=== PATIENT | female | born 2000 | race Caucasian/White ===

== ENCOUNTER 2024-08-01 02:55 | Emergency (ER) | payer BC ==
[~2024-08-01] VITALS: Ht 162.6 cm; Wt 88.5 kg
--- NOTE | 2024-08-01 03:31 | ERN ---
General Chief Complaint: Headache Stated Complaint: possible concussion Time Seen by MD: 03:01 Source: patient History of Present Illness Initial Comments Patient was in the kitchen pending over or leaning over to get something and then she banged her head on the counter. She had a brief period of nausea but no emesis. No loss of consciousness. Currently she has a headache. She has no past medical history. Allergies: Coded Allergies: No Known Drug Allergies (Unverified Allergy, Unknown, 08/01/24) Past Medical History Past Medical History: No Pertinent History Past Surgical History: None Constitutional: (-) chills, (-) diaphoresis, (-) fever, (-) malaise, (-) weakness, (-) other documentation EENTM: (-) eye pain, (-) blurred vision, (-) tearing, (-) double vision, (-) ear pain, (-) ear discharge, (-) nose pain, (-) nose congestion, (-) throat pain, (-) Throat swelling, (-) mouth pain, (-) tooth pain, (-) mouth swelling, (-) other documentation Respiratory: (-) cough, (-) orthopnea, (-) short of breath, (-) stridor, (-) wheezing, (-) other documentation Cardiovascular: (-) chest pain, (-) edema, (-) palpitations, (-) syncope, (-) dyspnea on exertion, (-) other documentation Gastrointestinal/Abdominal: (+) nausea Musculoskeletal: (-) Neck pain, (-) back pain, (-) Flank Pain, (-) joint pain, (-) joint swelling, (-) muscle pain, (-) muscle stiffness, (-) gout, (-) other documentation Skin: (-) laceration, (-) contusion, (-) abrasion, (-) abscess, (-) rash, (-) change in color, (-) change in hair, (-) change in nails, (-) diaphoresis, (-) dryness, (-) other documentation Neuro: (+) headache Physical Exam General Appearance: (+) no apparent distress Orientation: (+) alert Head/Face Trauma: No Face Comment No obvious contusion on the patient's posterior scalp. No tenderness no bleeding Eye: bilateral eye normal inspection, bilateral eye PERRL, bilateral eye EOMI Ear, Nose, Throat: (+) hearing grossly normal, (+) normal ENT inspection, (+) moist mucous membraine Neck: (-) normal inspection, (-) supple, (-) full range of motion, (-) no JVD, (-) non-tender, (-) no bruit, (-) tender, (-) limited range of motion, (-) tender lateral, (-) tender midline, (-) thyromegaly, (-) lymphadenopathy, (-) masses, (-) carotid bruit, (-) other documentaion Respiratory: (+) chest non-tender, (+) lungs clear Heart: (+) regular Results Laboratory and Microbiology Lab and Micro Result Laboratory Tests Test 08/01/24 04:14 Urine HCG, Qualitative NEGATIVE (NEGATIVE) MDM I have low suspicion for a a cerebral hemorrhage. Patient does have mild symptoms of a concussion and I will get a head CT scan. Patient head CT scan is negative for hemorrhage fracture hydrocephalus. I will discharge the patient. With instructions to return if her postconcussive symptoms get worse. ED Course Orders Procedure Category Date Status Time Ct Head/Brain W/O CT 08/01/24 Taken Contrast 03:01 Ketorolac 60mg/2ml PHA 08/01/24 Complete (Toradol 60mg/2ml) 04:00 ,Urine Test LAB 08/01/24 Complete 04:18 Current Medications Medications (Trade) Dose Ordered Sig/Ulisses Route PRN Reason Start Time Stop Time Status Last Admin Dose Admin Ketorolac Tromethamine (toRADol 60MG/ 2ML) 60 mg ONCE ONCE IM 08/01/24 04:00 08/01/24 04:02 DC 08/01/24 04:10 Vital Signs Date Time Temp Pulse Resp B/P (MAP) Pulse Ox O2 Delivery O2 Flow Rate FiO2 08/01/24 03:23 98.6 90 18 136/88 99 Room Air* 0 21 08/01/24 03:19 92 18 124/67 99 Room Air 08/01/24 03:19 97.0 92 18 124/76 98 Room Air* 0 21 DX & DISP Disposition: Discharge Departure Impression: Primary Impression: Post-concussion headache Condition: Stable Additional Instructions: You may have a postconcussive syndrome. Or a postconcussive headache. You can control the symptoms with [id number] medications such as Tylenol or ibuprofen. If the nausea and vomiting prevent you from eating well or staying hydrated please return to the emergency room. Referrals: NONE (PCP) LAURA VALENCIA MD Aug 01, 2024 03:31
[2024-08-01] MEDS: ketOROlac 60 MG VIAL (30MG/ML) IM ONE (04:10)
[2024-08-01 05:07] VITALS: BP 145/83; PULSE 90; RESP 17; TEMP 98.6; O2SAT 100
--- NOTE | 2024-08-01 08:20 | HMCIMG ---
CT HEAD/BRAIN W/O CONTRAST HISTORY: Concussion COMPARISON: None TECHNIQUE: Multiple sequential axial images of the head were obtained from the base of the skull through vertex. Patient was not given contrast through intravenous route. FINDINGS: The ventricles and extraventricular CSF spaces are nondilated for patient's age. There is no midline shift, mass effect or herniation. No acute intracranial bleed is seen. Visualized portion of the paranasal sinuses are grossly within normal limits. IMPRESSION: 1. No acute intracranial bleed is seen. CT was performed with one or more following dose reduction techniques: automated exposure control, adjustment of the mA and kv according to patient's size, or use of a iterative reconstruction technique.
== END 2024-08-01 05:11 | disposition home or self-care (01) ==
LOC: EDH 02:55
DX: G44.309 Post-traumatic headache, unspecified, not intractable (principal)
CPT/HCPCS: 99284; 70450; 81025; 96372; J1885

== ENCOUNTER 2024-12-25 10:57 | Emergency (ER) | payer BC ==
[~2024-12-25] VITALS: Ht 162.6 cm; Wt 99.4 kg
--- NOTE | 2024-12-25 11:07 | ERN ---
ED Note History of Present Illness Stated Complaint: ABD PAIN Chief Complaint: Abdominal Pain in Time Seen by MD: 10:59 Dictation: PATIENT IS A 24-YEAR-OLD FEMALE HERE WITH COMPLAINTS OF HAVING PELVIC CRAMPING PAIN FOR THE LAST COUPLE OF DAYS. NO VAGINAL BLEEDING NO FLANK PAIN NO CHANGE IN URINATION. SHE STATES SHE IS [id number] WEEKS , NO CARE. . SHE STATES SHE HAS A AN APPOINTMENT NEXT WEEK WITH A AN ELECTROPLATER DOCTOR HOWEVER COULD NOT RECALL THE NAME OF THE DOCTOR. DENIES VAGINAL BLEEDING AT THIS TIME Allergies: Coded Allergies: No Known Drug Allergies (Unverified Allergy, Unknown, 08/01/24) Past Medical History Past Medical History: No Pertinent History Surgical History: None LMP: Sep 30, 2024 : 2 Para: 1 Aborts: 0 RN Note Reviewed/Agreed w/PFSH: Yes Review of System Dictation CONSTITUTIONAL: NEGATIVE EXCEPT FOR HPI HEAD/FACE: NEGATIVE EXCEPT FOR HPI EENT: NEGATIVE EXCEPT FOR HPI RESPIRATORY: NEGATIVE EXCEPT FOR HPI GASTROINTESTINAL/ABDOMINAL: NEGATIVE EXCEPT FOR HPI GENITOURINARY: NEGATIVE EXCEPT FOR HPI PELVIC CRAMPING WITHOUT BLEEDING MUSCULOSKELETAL: NEGATIVE EXCEPT FOR HPI INTEGUMENTARY: NEGATIVE EXCEPT FOR HPI NEUROLOGICAL/PSYCH: NEGATIVE EXCEPT FOR HPI HEMATOLOGIC/LYMPHATIC: NEGATIVE EXCEPT FOR HPI ALL SYSTEMS NEGATIVE, EXCEPT NOTED ABOVE. 13 POINT REVIEW OF SYSTEMS ASSESSED AND ALL NEGATIVE EXCEPT FOR ABOVE. Initial Vital Sign VS Vital Signs Date Time Temp Pulse Resp B/P (MAP) Pulse Ox O2 Delivery O2 Flow Rate FiO2 12/25/24 10:59 97.5 92 18 136/91 100 Room Air 0 12/25/24 11:29 21 Physical Exam Dictation VITAL SIGNS REVIEWED GENERAL APPEARANCE: ALERT, ORIENTED X 3, MILD ACUTE DISTRESS, WELL DEVELOPED, NOURISHED. OBESE HEAD AND FACE: NON-TRAUMATIC. EYES: PERRL, PINK CONJUNCTIVAS, EYELID NO TRAUMA, ANTERIOR CHAMBER WITH ARCUS SENILIS. EARS: PINNAS INTACT AND NO SIGNS OF TRAUMA OR ERYTHEMA EAR CANALS CLEAR AND NO DISCHARGE TM NO ERYTHEMA NOSE: NO DISCHARGE, NO BLEEDING. OROPHARYNX: MOUTH NORMAL, TONGUE PINK, PHARYNX CLEAR,NO ERYTHEMA, TONSILS NO EXUDATES, NO ABSCESSES NOTED, MUCOUS MEMBRANE MOIST NECK: SUPPLE, NON-TENDER, NO THYROMEGALY, NO MASSES, NO JVD, NO BRUITS BREAST:DEFERRED CHEST:NO TENDERNESS, NO CREPITUS, NO PARADOXICAL MOVEMENT, NO RETRACTIONS LUNGS:CLEAR, WELL-VENTILATED, SYMMETRIC, NO RALES, NO WHEEZING, NO RHONCHI, NO STRIDOR, GOOD BREATH SOUNDS BILATERALLY HEART: REGULAR RATE, REGULAR RHYTHM, NO MURMUR, NO GALLOPS VASCULAR: NO PERIPHERAL EDEMA, ABDOMEN: SOFT, POSITIVE BOWEL SOUNDS, NONDISTENDED, NO GUARDING, NONTENDER, NO REBOUND, NO MASSES NO HEPATOMEGALY, NO SPLENOMEGALY, NO HERRERA'S SIGN, NO HERNIAS. RECTAL: DEFERRED GENITAL: DEFERRED NEUROLOGICAL: NORMAL SPEECH, MOTOR FUNCTION INTACT, SENSORY FUNCTION INTACT MUSCULOSKELETAL: NECK NONTENDER, FULL RANGE OF MOTION, BACK NONTENDER, FULL RANGE OF MOTION, EXTREMITIES: NONTENDER, FULL RANGE OF MOTION SKIN: COLOR PINK, DRY, NO TURGOR, NO RASH, NO LACERATIONS, NO ABRASIONS, NO CONTUSIONS. LYMPHATIC: DEFERRED Results (Laboratory/Radiology) Laboratory/Radiology Laboratory Tests Test 12/25/24 11:16 White Blood Count 11.5 K/uL (4.8-10.8) H Red Blood Count 4.83 MIL/uL (4.00-5.50) Hemoglobin 13.5 g/dL (12.0-16.0) Hematocrit 39.6 % (36-48) Mean Corpuscular Volume 82.0 fL (79-99) Mean Corpuscular Hemoglobin 28.0 pg (27.0-33.0) Mean Corpuscular Hemoglobin Concent 34.1 g/dL (32.0-36.0) Red Cell Distribution Width 14.3 % (11.0-15.5) Platelet Count 337 K/uL (130-400) Mean Platelet Volume 9.4 fL (7.5-10.5) Immature Granulocyte % (Auto) 0.3 % (0-1) Neutrophils (%) (Auto) 73.2 % (40.0-77.0) Lymphocytes (%) (Auto) 18.5 % (21.0-51.0) L Monocytes (%) (Auto) 5.2 % (3.0-13.0) Eosinophils (%) (Auto) 2.3 % (0.0-8.0) Basophils (%) (Auto) 0.5 % (0.0-5.0) Neutrophils # (Auto) 8.4 K/uL (1.8-7.7) H Lymphocytes # (Auto) 2.1 K/uL (1.0-4.8) Monocytes # (Auto) 0.6 K/uL (0.1-1.0) Eosinophils # (Auto) 0.27 K/uL (0.00-0.70) Basophils # (Auto) 0.06 K/uL (0.00-0.20) Absolute Immature Granulocyte (auto 0.04 K/uL (0-1) Nucleated Red Blood Cells 0.0 % (0.0-0.19) Sodium Level 133 mmol/L (136-145) L Potassium Level 3.4 mmol/L (3.5-5.1) L Chloride Level 99 mmol/L (101-111) L Carbon Dioxide Level 25 mmol/L (21-32) Blood Urea Nitrogen 3 mg/dL (7-18) L Creatinine 0.5 mg/dL (0.5-1.0) Glomerular Filtration Rate Calc 134 mL/min (>90) Random Glucose 90 mg/dL (70-105) Total Calcium 8.8 mg/dL (8.5-10.1) 1200/OBSTETRICAL ULTRASOUND DEMONSTRATES IUP, HEART RATE 157,13 WEEKS, NO BLEED, Labs Reviewed?: Yes ED Course ED Course Orders Procedure Category Date Status Time Cbc With Differential LAB 12/25/24 Complete 11:04 Hcg,Quantitative LAB 12/25/24 In Process 11:04 Us Ob <14 Weeks US 12/25/24 Taken 11:04 Type And Screen BBK 12/25/24 In Process 11:04 Basic Metabolic Panel LAB 12/25/24 In Process 11:04 Acetaminophen 500mg PHA 12/25/24 Complete Tab (Tylenol 500mg T 11:30 Ondansetron Odt 4mg PHA 12/25/24 Complete Tab (Zofran 4mg Odt) 11:30 Current Medications Medications (Trade) Dose Ordered Sig/Ulisses Route PRN Reason Start Time Stop Time Status Last Admin Dose Admin Acetaminophen (TYLenol 500MG TAB) 1,000 mg ONCE ONCE PO 12/25/24 11:30 12/25/24 11:31 DC 12/25/24 11:15 Ondansetron HCl (zoFRAN 4MG ODT) 4 mg ONCE ONCE SL 12/25/24 11:30 12/25/24 11:31 DC 12/25/24 11:40 Vital Signs Date Time Temp Pulse Resp B/P (MAP) Pulse Ox O2 Delivery O2 Flow Rate FiO2 12/25/24 11:29 96 18 123/101 100 Room Air* 0 21 12/25/24 11:15 97.5 12/25/24 10:59 97.5 92 18 136/91 100 Room Air 0 1200/PATIENT DISCHARGED HOME TO CONTINUE VITAMINS/[id number]. SHE WILL BE GIVEN ZOFRAN FOR NAUSEA VOMITING. ENCOURAGED TO KEEP HER APPOINTMENT WITH HER ELECTROPLATER DOCTOR NEXT WEEK. TYLENOL ONLY FOR PAIN, NO [id number] MEDICATIONS EXCEPT TYLENOL UNTIL CLEARED BY HER ELECTROPLATER DOCTOR. NO ALCOHOL, NO TOBACCO Medical Decision Making MDM MDM: DIFFERENTIAL DIAGNOSIS: ECTOPIC /THREATENED A B/PAIN IN /ELECTROLYTE IMBALANCE/DEHYDRATION RATIONALE: TESTS CONSIDERED AND ORDERED SECONDARY TO SHARED DECISION MAKING INCLUDE: LABS/OB ULTRASOUND PREVIOUS OUTSIDE RECORDS REVIEWED: OLD ER VISITS. RISK OF COMPLICATION AND/OR MORBIDITY OR MORTALITY OF PATIENT MANAGEMENT: NONE MEDICATIONS-PER MEDICATION RECONCILIATION NEED FOR HOSPITALIZATION: PATIENT DOES NOT MEET CRITERIA FOR HOSPITALIZATION. NONE NEED FOR EMERGENCY MAJOR/MINOR SURGERY: NO THERE ARE NO SOCIAL CONCERNS WITH THIS PATIENT. PRESCRIPTION DRUG MANAGEMENT ZOFRAN PRESCRIPTIONS WILL INCLUDE SYMPTOMATIC CARE PATIENT'S PRIOR EXTERNAL MEDICAL RECORDS FROM OTHER ER VISITS WERE REVIEWED BY ME INDICATED. PRIOR TESTING AND RESULTS FROM PREVIOUS VISITS WERE REVIEWED. PRIOR TESTS WERE TAKEN INTO ACCOUNT WITH MEDICAL DECISION MAKING AND RESOURCE UTILIZATION, INDEPENDENT HISTORIAN/HISTORIANS WERE USED TO OBTAIN COMPLETE MEDICAL HISTORY. I INDEPENDENTLY INTERPRETED THE TEST THAT WERE PERFORMED, RESULTS WERE REVIEWED BY ME AND CONSIDERED FINDINGS ON RADIOLOGY IF ORDERED. MEDICAL MANAGEMENT AND EXAMINATION INTERPRETATION DISCUSSIONS WERE HAD BY ME WITH OTHER QUALIFIED HEALTHCARE PROFESSIONALS INDICATED FOR THE PATIENT'S CARE. DX & DISP Disposition: Discharge Departure Impression: Primary Impression: Pelvic pain during Additional Impressions: Hypokalemia, Nausea & vomiting Condition: Stable Scripts Ondansetron (Ondansetron Odt) 4 Mg Tab.rapdis 4 MG PO Q6HPRN PRN for nausea, #16 TAB 0 Refills Prov: ÁLVAROSUMMER RESILIENT TILE INSTALLER 12/25/24 Additional Instructions: FOLLOW-UP WITH PRIMARY CARE PROVIDER IN 1 TO 2 DAYS. TAKE MEDICATIONS DIRECTED HERE IN THE EMERGENCY ROOM. OKAY TO CONTINUE HOME MEDICATIONS UNLESS OTHERWISE DISCUSSED DURING YOUR VISIT IN THE EMERGENCY ROOM TODAY. RETURN TO YOUR NEAREST EMERGENCY ROOM IF SYMPTOMS WORSEN OR IF THERE IS NO IMPROVEMENT. CALL 911 IF YOU NEED IMMEDIATE ASSISTANCE. TAKE TYLENOL OR MOTRIN [id number] NEEDED AND IF NO CONTRAINDICATIONS ARE PRESENT. INCREASE ORAL HYDRATION. A WOUND CULTURE OR URINE CULTURE WAS ORDERED HERE IN THE EMERGENCY ROOM DEPARTMENT PLEASE FOLLOW-UP WITH PRIMARY CARE PROVIDER AND ADVISE THEM TO GET REPEAT PORTS FROM OUR FACILITY. IF YOU HAD ANY MALCOM WRAP/SPLINTS THAT WERE APPLIED HERE, PLEASE DO NOT REMOVE THEM UNTIL YOU SEE YOUR PRIMARY CARE OR SPECIALTY. TAKE VITAMINS/DQVQ-KPT-FIGHSND WITH FOOD DAILY. TYLENOL ONLY FOR PAIN. TAKE ZOFRAN NEEDED FOR NAUSEA VOMITING. NO ALCOHOL, NO TOBACCO, NO [id number] MEDICATIONS EXCEPT TYLENOL UNTIL CLEARED BY YOUR ELECTROPLATER DOCTOR. INCREASE YOUR WATER INTAKE. Referrals: SELF,REFERRAL (PCP) Time of Disposition: 12:02 I have reviewed the case, and I agree with, Diagnosis and Plan [facility] Dec 25, 2024 11:07
[2024-12-25 11:15] VITALS: TEMP 97.5
[2024-12-25 11:21] LABS: IMMATURE GRANULOCYTE ABSOLUTE 0.04 K/uL (0-1); NUCLEATED RED BLOOD CELLS 0.0 % (0.0-0.19); PLATELET COUNT (AUTO) 337 K/uL (130-400); RED BLOOD CELL COUNT(AUTO) 4.83 MIL/uL (4.00-5.50); RED CELL DISTRIBUTION WIDTH 14.3 % (11.0-15.5); WHITE BLOOD COUNT (AUTO) 11.5 K/uL (4.8-10.8)
[2024-12-25 11:36] LABS: CREATININE 0.5 mg/dL (0.5-1.0); GLOMERULAR FILTR. RATE CALC 134.0 mL/min (>90); GLUCOSE,RANDOM 90.0 mg/dL (70-105); SODIUM SERUM 133.0 mmol/L (136-145); UREA NITROGEN, BLOOD 3.0 mg/dL (7-18)
[2024-12-25] MEDS ORDERED: ONDA-243 PO (12:02)
[2024-12-25 12:25] VITALS: BP 123/69; PULSE 91; RESP 18; TEMP 98; O2SAT 97
[2024-12-25] MEDS: PoTASSium chloRIDE 20MEQ ER 20 MEQ ERTAB PO ONE (12:28)
--- NOTE | 2024-12-25 12:42 | HMCIMG ---
EXAM: US Obstetrical, Complete >14 Weeks CLINICAL HISTORY: Approximately 12 weeks , pelvic cramping TECHNIQUE: Transabdominal imaging of the maternal pelvis and intrauterine gestation performed with image documentation. COMPARISON: None provided. FINDINGS: UTERUS: Measures 13.8 ??? 6.6 ??? 8.7 cm. ENDOMETRIUM: Single intrauterine identified. GESTATIONAL SAC: Measures 6.66 cm, corresponding to a gestational age of approximately 13 weeks 1 day. CROWN???RUMP LENGTH (CRL): Measures 6.64 cm, corresponding to a gestational age of approximately 13 weeks 0 days. HEART RATE: 157 beats per minute. YOLK SAC: Not visualized. RIGHT OVARY: Obscured by bowel gas. LEFT OVARY: Measures 2.6 ??? 1.7 ??? 2.0 cm with normal flow. CUL-DE-SAC: No free fluid. CERVIX: Cervical length 2.4 cm; appears closed at this time. ESTIMATED GESTATIONAL AGE (BY ULTRASOUND): 13 weeks 0 days ESTIMATED DUE DATE (AUA): July 02, 2025 IMPRESSION: Single live intrauterine with an estimated gestational age of 13 weeks 0 days by ultrasound. No acute abnormality. /[place]ink[place]
== END 2024-12-25 12:35 | disposition home or self-care (01) ==
LOC: EDH 10:57
DX: O99.281 Endocrine, nutritional and metabolic diseases complicating pregnancy, first trimester (principal); E87.6 Hypokalemia; O21.9 Vomiting of pregnancy, unspecified; O26.891 Other specified pregnancy related conditions, first trimester; R10.20 Pelvic and perineal pain unspecified side; Z3A.13 13 weeks gestation of pregnancy
CPT/HCPCS: 36415; 76801; 80048; 84702; 85025; 86850; 86900; 86901; 99284